=== PATIENT | male | born 1955 | race African-American/Black ===

== ENCOUNTER 2022-06-30 21:52 | Emergency (ER) | payer MEDICARE, OTHER ==
[~2022-06-30] VITALS: Ht 190.5 cm; Wt 100.0 kg
[2022-06-30 21:54] VITALS: BP 183/69
[2022-06-30] MEDS ORDERED: HYDR25TA2 PO (22:02)
[2022-06-30] MEDS ORDERED: LIDOCAINE 1% 10 ML VIAL SQ ONE (23:00)
== END 2022-06-30 23:41 | disposition home or self-care (01) ==
LOC: EMS 21:57
DX: S01.112A Laceration without foreign body of left eyelid and periocular area, initial encounter (principal); E78.00 Pure hypercholesterolemia, unspecified; I10 Essential (primary) hypertension; X58.XXXA Exposure to other specified factors, initial encounter; Y93.89 Activity, other specified; Y92.89 Other specified places as the place of occurrence of the external cause; Y99.8 Other external cause status
CPT/HCPCS: 99283; 12013; J3490

== ENCOUNTER 2024-01-06 08:08 | Emergency (ER) | payer MEDICARE, OTHER ==
[~2024-01-06] VITALS: Ht 188 cm; Wt 79.5 kg
[~2024-01-06 08:08] MED LIST: HYDR25TA2 PO
[2024-01-06 10:40] LABS: BASOPHILS % (AUTO) 1.4 % (0.0-2.0); EOSINOPHILS % (AUTO) 3.6 % (1.0-6.0); HEMATOCRIT 32.3 % (41-53); HEMOGLOBIN 10.6 g/dL (13.5-17.5); LYMPHOCYTES # (AUTO) 0.8 K/uL (1.0-4.8); LYMPHOCYTES % (AUTO) 22.1 % (22.0-44.0); MEAN CORPUSCULAR HEMOGLOBIN 32.9 pg (26.0-34.0); MEAN CORPUSCULAR HGB CONC 32.9 G/dL (31.0-37.0); MEAN CORPUSCULAR VOLUME 100 fL (80-100); MONOCYTES # (AUTO) 0.6 K/uL (0.1-1.0); MONOCYTES % (AUTO) 15.8 % (2.0-9.0); NEUTROPHILS # (AUTO) 2.2 K/uL (1.8-7.7); NEUTROPHILS % (AUTO) 57.1 % (40.0-70.0); PLATELET COUNT (AUTO) 249 K/uL (150-450); RED BLOOD CELL COUNT(AUTO) 3.23 MIL/uL (4.50-5.90); RED CELL DISTRIBUTION WIDTH 18.5 % (11.5-14.5); WHITE BLOOD COUNT (AUTO) 3.8 K/uL (4.5-11.0)
[2024-01-06 10:49] LABS: ANION GAP 11 mmol/L (8-16); CARBON DIOXIDE 29 mmol/L (22-29); CHLORIDE 99 mmol/L (98-107); CREATININE 0.91 mg/dL (0.60-1.30); GLOMERULAR FILTR. RATE CALC > 60 mL/min (>60); GLUCOSE,RANDOM 91 mg/dL (70-110); POTASSIUM 3.6 mmol/L (3.5-5.1); SODIUM SERUM 139 mmol/L (136-145); UREA NITROGEN, BLOOD 12 mg/dL (7-18)
[2024-01-06 11:04] LABS: B-TYPE NATRIURETIC PEPTIDE 105 pg/mL (0-100)
[2024-01-06 11:28] LABS: RBC MORPHOLOGY COMMENT ABNORMAL RBC MORPH
[2024-01-06 18:55] VITALS: BP 142/89; PULSE 79; RESP 18; TEMP 97.6; O2SAT 95
== END 2024-01-06 14:29 | disposition left against medical advice (07) ==
LOC: EMS 08:08
DX: M25.572 Pain in left ankle and joints of left foot (principal); M25.571 Pain in right ankle and joints of right foot; E78.00 Pure hypercholesterolemia, unspecified; I10 Essential (primary) hypertension
CPT/HCPCS: 80048; 83880; 85025; 93970; 99284

== ENCOUNTER 2024-05-15 20:21 | Inpatient (IN) | payer MEDICARE, OTHER ==
[~2024-05-15] VITALS: Ht 188 cm; Wt 79.5 kg
[~2024-05-15 20:21] MED LIST changes: +AMLO-257 PO; +LEVE-71 PO
[2024-05-15 23:53] LABS: BASOPHILS % (AUTO) 0.2 % (0.0-2.0); EOSINOPHILS % (AUTO) 0.8 % (1.0-6.0); HEMATOCRIT 28.1 % (41-53); HEMOGLOBIN 9.5 g/dL (13.5-17.5); LYMPHOCYTES % (AUTO) 10.4 % (22.0-44.0); MEAN CORPUSCULAR HEMOGLOBIN 34.6 pg (26.0-34.0); MEAN CORPUSCULAR HGB CONC 33.7 G/dL (31.0-37.0); MEAN CORPUSCULAR VOLUME 102 fL (80-100); MONOCYTES # (AUTO) 0.9 K/uL (0.1-1.0); MONOCYTES % (AUTO) 9.6 % (2.0-9.0); NEUTROPHILS # (AUTO) 7.5 K/uL (1.8-7.7); PLATELET COUNT (AUTO) 107 K/uL (150-450); RED BLOOD CELL COUNT(AUTO) 2.75 MIL/uL (4.50-5.90); RED CELL DISTRIBUTION WIDTH 15.3 % (11.5-14.5); WHITE BLOOD COUNT (AUTO) 9.5 K/uL (4.5-11.0)
[2024-05-16 00:06] LABS: ANION GAP 10 mmol/L (8-16); CALCIUM, TOTAL 8.9 mg/dL (8.8-10.5); CARBON DIOXIDE 29 mmol/L (22-29); CHLORIDE 98 mmol/L (98-107); CREATININE 1.03 mg/dL (0.60-1.30); GLOMERULAR FILTR. RATE CALC > 60 mL/min (>60); GLUCOSE,RANDOM 95 mg/dL (70-110); POTASSIUM 3.2 mmol/L (3.5-5.1); SODIUM SERUM 137 mmol/L (136-145); UREA NITROGEN, BLOOD 16 mg/dL (7-18)
[2024-05-16 00:16] LABS: TROPONIN I-HIGH SENSITIVITY 31 ng/L (<76)
[2024-05-16 00:34] LABS: ACETONE,BLOOD NEGATIVE (NEGATIVE); B-TYPE NATRIURETIC PEPTIDE 117 pg/mL (0-100)
[2024-05-16] MEDS: POTASSIUM CHLORIDE 20 MEQ ER TABLET PO ONE (02:15)
[2024-05-16] MEDS: SODIUM CHLORIDE 0.9% 1,000 ML IV ONE (02:15)
[2024-05-16 02:16] LABS: APPEARANCE,URINE CLEAR (CLEAR); BILIRUBIN,URINE NEGATIVE (NEGATIVE); COLOR,URINE YELLOW (YELLOW); GLUCOSE, URINE (UA) 70-100 mg/dL (NEGATIVE); LEUKOCYTE ESTERASE ,URINE LARGE (NEGATIVE); NITRATE,URINE NEGATIVE (NEGATIVE); OCCULT BLOOD,URINE MODERATE (NEGATIVE); PH,URINE 6.5 (5.0-8.0); PH,URINE DRUG SCREEN 6.5 (5.0-8.0); PROTEIN,URINE 30-70 mg/dL (NEGATIVE); SPECIFIC GRAVITIY, URINE 1.016 (1.003-1.030)
[2024-05-16] MEDS: HYDROCHLOROTHIAZIDE 25 MG TABLET PO ONE (02:16)
[2024-05-16] MEDS: ChlordiazePOXIDE HCL 25 MG CAPSULE PO ONE (02:19)
[2024-05-16 02:43] LABS: ALCOHOL, URINE DRUG SCREEN NEGATIVE (NEGATIVE); AMPHET/METH SCREEN,URINE NEGATIVE (NEGATIVE); BARBITURATE SCREEN, URINE NEGATIVE (NEGATIVE); BENZODIAZEPINES SCREEN,URINE NEGATIVE (NEGATIVE); CANNABINOID SCREEN,URINE NEGATIVE (NEGATIVE); COCAINE SCREEN,URINE NEGATIVE (NEGATIVE); METHADONE SCREEN, URINE NEGATIVE (NEGATIVE); OPIATE SCREEN,URINE NEGATIVE (NEGATIVE); PHENCYCLIDINE SCREEN,URINE NEGATIVE (NEGATIVE)
[2024-05-16 02:48] LABS: BACTERIA,URINE Moderate /HPF (None Seen); SQUAMOUS EPITHELIAL CELL,UR Few /LPF (None Seen)
[2024-05-16] MEDS: LISINOPRIL 10 MG TABLET PO ONE (06:53)
[2024-05-16] MEDS: HYDROCHLOROTHIAZIDE 25 MG TABLET PO SCH (09:00)
[2024-05-16] MEDS: AmLODIPine BESYLATE 5 MG TABLET PO SCH (09:00)
[2024-05-16] MEDS: LevETIRAcetam 500 MG TABLET PO SCH (09:16)
[2024-05-16] MEDS: CefTRIAXone 1 GM/DEXTROSE 50 ML IV SCH (09:16)
[2024-05-16] MEDS: MAGNESIUM SULFATE 2 GM, MVI, ADULT NO.1 WITH VIT K 10 ML, THIAMINE 100 MG, FOLIC ACID 1... IV ONE (09:17)
[2024-05-16 13:00] VITALS: BP 150/82; PULSE 73; RESP 18; TEMP 100.6; O2SAT 100
[2024-05-16] MEDS ORDERED: LISI-658 PO (13:07)
[2024-05-16] MEDS ORDERED: EZET10TA57 PO (13:07)
[2024-05-16] MEDS ORDERED: ONDANSETRON HCL 4 MG/2 ML VIAL IVP PRN (13:15)
[2024-05-16] MEDS ORDERED: MAGNESIUM HYDROXIDE SUSPENSION 30 ML UDCUP PO PRN (13:15)
[2024-05-16] MEDS ORDERED: BISACODYL 10 MG RECTAL RECTAL SUPPOSITORY PR PRN (13:15)
[2024-05-16] MEDS ORDERED: MORPHINE SULFATE 2 MG/ML SYRINGE IVP PRN (13:15)
[2024-05-16] MEDS ORDERED: ZOLPIDEM TARTRATE 5 MG TABLET PO PRN (13:15)
[2024-05-16] MEDS: ACETAMINOPHEN 325 MG TABLET PO PRN (13:38)
[2024-05-16] MEDS: CloNIDine 0.1 MG/24 HOUR PATCH TD SCH (14:41)
[2024-05-16 16:00] VITALS: BP_SYST 109; BP_SYST 149; BP_DIAS 62; BP_DIAS 77; PULSE 81; PULSE 99; RESP 18; TEMP 98.6; O2SAT 100; O2SAT 99
[2024-05-16] MEDS: HEPARIN SODIUM,PORCINE 5,000 UNITS/ML VIAL SQ SCH (16:04)
[2024-05-16 16:12] LABS: ANION GAP 10 mmol/L (8-16); CALCIUM, TOTAL 8.4 mg/dL (8.8-10.5); CARBON DIOXIDE 30 mmol/L (22-29); CHLORIDE 99 mmol/L (98-107); CREATININE 1.02 mg/dL (0.60-1.30); GLOMERULAR FILTR. RATE CALC > 60 mL/min (>60); GLUCOSE,RANDOM 94 mg/dL (70-110); SODIUM SERUM 139 mmol/L (136-145); UREA NITROGEN, BLOOD 16 mg/dL (7-18)
[2024-05-16 16:14] LABS: POTASSIUM 2.9 mmol/L (3.5-5.1)
[2024-05-16] MEDS ORDERED: SODIUM CHLORIDE 0.9% 250 ML IV ONE ×2 (18:34→19:46)
[2024-05-16] MEDS: POTASSIUM CHL 10 MEQ/WATER 50 ML IV PRN (18:44)
[2024-05-16] MEDS: ChlordiazePOXIDE HCL 25 MG CAPSULE PO PRN (19:41)
[2024-05-16] MEDS: DOCUSATE SODIUM 100 MG CAPSULE PO SCH (20:00)
[2024-05-16 20:04] VITALS: BP 129/71; PULSE 74; RESP 17; TEMP 98.7; O2SAT 100
[2024-05-17 06:44] LABS: BASOPHILS % (AUTO) 0.4 % (0.0-2.0); EOSINOPHILS % (AUTO) 3.6 % (1.0-6.0); HEMATOCRIT 24.9 % (41-53); HEMOGLOBIN 8.5 g/dL (13.5-17.5); LYMPHOCYTES # (AUTO) 0.9 K/uL (1.0-4.8); LYMPHOCYTES % (AUTO) 14.4 % (22.0-44.0); MEAN CORPUSCULAR HEMOGLOBIN 35.1 pg (26.0-34.0); MEAN CORPUSCULAR HGB CONC 34.1 G/dL (31.0-37.0); MEAN CORPUSCULAR VOLUME 103 fL (80-100); MONOCYTES # (AUTO) 0.8 K/uL (0.1-1.0); MONOCYTES % (AUTO) 13.2 % (2.0-9.0); NEUTROPHILS # (AUTO) 4.2 K/uL (1.8-7.7); NEUTROPHILS % (AUTO) 68.4 % (40.0-70.0); PLATELET COUNT (AUTO) 104 K/uL (150-450); RED BLOOD CELL COUNT(AUTO) 2.41 MIL/uL (4.50-5.90); RED CELL DISTRIBUTION WIDTH 15.2 % (11.5-14.5); WHITE BLOOD COUNT (AUTO) 6.1 K/uL (4.5-11.0)
[2024-05-17 06:48] LABS: ANION GAP 8 mmol/L (8-16); CALCIUM, TOTAL 8.5 mg/dL (8.8-10.5); CARBON DIOXIDE 31 mmol/L (22-29); CHLORIDE 102 mmol/L (98-107); CREATININE 0.98 mg/dL (0.60-1.30); GLOMERULAR FILTR. RATE CALC > 60 mL/min (>60); GLUCOSE,RANDOM 107 mg/dL (70-110); POTASSIUM 3.2 mmol/L (3.5-5.1); SODIUM SERUM 141 mmol/L (136-145); UREA NITROGEN, BLOOD 18 mg/dL (7-18)
[2024-05-17] MEDS ORDERED: ChlordiazePOXIDE HCL 25 MG CAPSULE PO PRN (07:00)
[2024-05-17 07:31] VITALS: BP 119/68; PULSE 70; RESP 18; TEMP 97.6; O2SAT 95
[2024-05-17 07:51] VITALS: BP 124/64; PULSE 67; RESP 18; TEMP 98.5; O2SAT 99
[2024-05-17 09:11] LABS: RBC MORPHOLOGY COMMENT ABNORMAL RBC MORPH
[2024-05-17] MEDS: ChlordiazePOXIDE HCL 25 MG CAPSULE PO SCH (09:15)
[2024-05-17] MEDS: PANTOPRAZOLE SODIUM 40 MG DR TABLET PO SCH (09:16)
[2024-05-17 12:02] VITALS: BP 137/64; PULSE 71; RESP 18; TEMP 98; O2SAT 100
[2024-05-17] MEDS: POTASSIUM CHLORIDE 20 MEQ ER TABLET PO PRN (12:06)
[2024-05-17] MEDS ORDERED: POTASSIUM CHL 10 MEQ/WATER 50 ML IV PRN (14:30)
[2024-05-17] MEDS ORDERED: LORazepam 2 MG/ML VIAL IVP PRN (14:30)
[2024-05-17 17:42] VITALS: BP 122/61; PULSE 68; RESP 18; TEMP 97.8; O2SAT 99
[2024-05-17 20:15] VITALS: BP 126/64; PULSE 74; RESP 18; TEMP 98.3; O2SAT 99
[2024-05-18 00:10] VITALS: BP 123/59; PULSE 71; RESP 18; TEMP 98.9; O2SAT 100
[2024-05-18 04:39] VITALS: BP 146/74; PULSE 68; RESP 19; TEMP 98.7; O2SAT 100
[2024-05-18 07:35] VITALS: BP 130/66; PULSE 70; RESP 18; TEMP 98; O2SAT 98
[2024-05-18 08:34] LABS: BASOPHILS % (AUTO) 0.6 % (0.0-2.0); EOSINOPHILS % (AUTO) 5.5 % (1.0-6.0); HEMATOCRIT 27.3 % (41-53); HEMOGLOBIN 9.3 g/dL (13.5-17.5); LYMPHOCYTES # (AUTO) 1.1 K/uL (1.0-4.8); LYMPHOCYTES % (AUTO) 22.1 % (22.0-44.0); MEAN CORPUSCULAR VOLUME 103 fL (80-100); MONOCYTES # (AUTO) 0.8 K/uL (0.1-1.0); MONOCYTES % (AUTO) 16.8 % (2.0-9.0); NEUTROPHILS # (AUTO) 2.7 K/uL (1.8-7.7); PLATELET COUNT (AUTO) 134 K/uL (150-450); RED BLOOD CELL COUNT(AUTO) 2.65 MIL/uL (4.50-5.90); WHITE BLOOD COUNT (AUTO) 4.9 K/uL (4.5-11.0)
[2024-05-18 09:39] LABS: ANION GAP 7 mmol/L (8-16); CALCIUM, TOTAL 8.9 mg/dL (8.8-10.5); CARBON DIOXIDE 31 mmol/L (22-29); CHLORIDE 104 mmol/L (98-107); CREATININE 0.97 mg/dL (0.60-1.30); GLOMERULAR FILTR. RATE CALC > 60 mL/min (>60); GLUCOSE,RANDOM 89 mg/dL (70-110); POTASSIUM 3.4 mmol/L (3.5-5.1); SODIUM SERUM 142 mmol/L (136-145); UREA NITROGEN, BLOOD 14 mg/dL (7-18)
[2024-05-18 10:11] LABS: RBC MORPHOLOGY COMMENT ABNORMAL RBC MORPH
[2024-05-18] MEDS: POTASSIUM CHLORIDE 20 MEQ ER TABLET PO PRN (10:38)
[2024-05-18] MEDS: HYDROCODONE/ACETAMINOPHEN 5-325 MG TABLET PO PRN (10:41)
[2024-05-18] MEDS ORDERED: CIPR250T6 PO (11:38)
[2024-05-19] MEDS ORDERED: ChlordiazePOXIDE HCL 10 MG CAPSULE PO PRN (07:00)
[2024-05-19] MEDS ORDERED: ChlordiazePOXIDE HCL 10 MG CAPSULE PO SCH (09:00)
[2024-05-20] MEDS ORDERED: ChlordiazePOXIDE HCL 10 MG CAPSULE PO PRN (07:00)
== END 2024-05-18 13:00 | disposition home or self-care (01) | DRG 305 ==
LOC: EMS 20:21 → EDBEDREQ 05-16 01:50 → EDH 05-16 07:46 → 5S 05-16 11:00
PROVIDERS: ADMIT Internal Medicine; ATTEND Internal Medicine
DX: I16.0 Hypertensive urgency (principal); N39.0 Urinary tract infection, site not specified; R65.10 Systemic inflammatory response syndrome (SIRS) of non-infectious origin without acute organ dysfunction; F10.139 Alcohol abuse with withdrawal, unspecified; E87.6 Hypokalemia; I10 Essential (primary) hypertension; D69.6 Thrombocytopenia, unspecified; D63.8 Anemia in other chronic diseases classified elsewhere; R60.0 Localized edema; E78.00 Pure hypercholesterolemia, unspecified; Z91.148 Patient's other noncompliance with medication regimen for other reason
CPT/HCPCS: 71045; 80048; 80307; 81001; 82009; 83880; 84132; 84484; 85025; 87040; 87086; 93005; 93306; 93970; 97162; 97530; 99285; G0480; J0696; J1644; J3411; J3475; J3480; J3490; J7030; J7050; 36415-L1; 36415-TC